=== PATIENT | female | born 1995 | race Caucasian/White ===

== ENCOUNTER 2017-04-09 21:52 | Emergency (ER) | payer BC, OTHER ==
[~2017-04-09] VITALS: Ht 172.7 cm; Wt 124.0 kg
[2017-04-09 21:54] VITALS: Ht 172.7 cm; Wt 124.0 kg
[2017-04-09] MEDS ORDERED: KETOROLAC 30 MG INJ IV STA (22:06)
[2017-04-09] MEDS ORDERED: SOD CHLORIDE 0.9% 1,000 ML IV STA (22:06)
[2017-04-09 22:52] LABS: ADD UMIC YES; URINE BILIRUBIN (Dip) NEGATIVE (NEGATIVE); URINE BLOOD (Dip) 3+ (NEGATIVE); URINE COLOR LT. YELLOW (YELLOW); URINE GLUCOSE (Dip) NEGATIVE (NEGATIVE); URINE KETONES (Dip) NEGATIVE (NEGATIVE); URINE LEUKOCYTE ESTERASE (Dip) NEGATIVE (NEGATIVE); URINE NITRITE (Dip) NEGATIVE (NEGATIVE); URINE TOTAL PROTEIN (Dip) NEGATIVE (NEGATIVE); URINE UROBILINOGEN (Dip) 0.2 E.U./dL (0.1-1.0)
[2017-04-09 23:04] LABS: BACTERIA,URINE OCCASIONAL; MUCUS,URINE MODERATE; SQUAMOUS EPITHELIAL CELL,UR MANY; URINE RBCS 0-2 /HPF (0)
[2017-04-09 23:13] LABS: ADD SCAN DIFF NO
[2017-04-09 23:17] LABS: BASOPHILS % 0.3 % (0.0-2.0); EOSINOPHILS # 0.2 10^3/ul (0.0-0.5); EOSINOPHILS % 1.9 % (0.0-7.0); HEMATOCRIT 34.3 % (37.0-47.0); LYMPHOCYTES % 37.8 % (15.0-51.0); MEAN CORPUSCULAR HEMOGLOBIN 30.9 pg (29.0-33.0); MEAN CORPUSCULAR VOLUME 88.4 fl (82.0-101.0); MEAN PLATELET VOLUME 11.5 fl (7.4-10.4); MONOCYTE # 0.6 10^3/ul (0.3-0.9); MONOCYTES % 5.6 % (0.0-11.0); NEUTROPHIL # 5.7 10^3/ul (1.6-7.5); PLATELET COUNT 295 10^3/UL (140-415); RED BLOOD COUNT 3.88 10^6/ul (4.20-5.40); RED CELL DISTRIBUTION WIDTH 12.8 % (11.5-14.5); WHITE BLOOD COUNT 10.5 10^3/ul (4.8-10.8)
--- NOTE | 2017-04-09 23:39 | ERD ---
ER Documentation Chief Complaint Date/Time DATE: 04/09/17 TIME: 23:32 Chief Complaint vaginal bleeding x 3 weeks, denies , pelvic pain HPI This 21-year-old female reports vaginal bleeding for the last 2-3 weeks. Patient reports clots, pelvic cramping, weakness fatigue and dizziness. Patient reports she has history of abnormal menstruation and states she has been seen by her primary care physician was prescribed oral control pills which she has not started yet. Patient reports that she was going to start pills after this menstruation but this menstruation has not stopped. Patient denies possibility of , she is sexually active, does not use condoms, but reports she took a test at the beginning of the month. Patient reports nausea intermittently, denies vomiting, breast tenderness, or weight gain. ROS All systems reviewed and are negative except as per history of present illness. Medications Home Meds No Active Prescriptions or Reported Meds Allergies Allergies: Coded Allergies: No Known Allergy (Unverified , 04/20/14) PMhx/Soc Hx Alcohol Use: No Hx Substance Use: No Hx Tobacco Use: No Physical Exam Vitals Vital Signs Date Time Temp Pulse Resp B/P Pulse Ox O2 Delivery O2 Flow Rate FiO2 04/09/17 21:54 97.8 96 20 131/70 98 Vitals stable, triage notes Physical Exam Const: Vitals stable, triage notes reviewed Head: Atraumatic Eyes: Normal Conjunctiva, PERRLA, EOMI ENT: Normal External Ears, Nose and Mouth, mucous membranes Neck: Resp: Chest rise and fall symmetrically, no respiratory distress Cardio: Abd: Abdomen obese, soft, right upper quadrant tenderness, generalized lower quadrant tenderness, no CVA tenderness Skin: Back: No midline or flank tenderness Ext: Neur: Awake and alert Psych: Normal Mood and Affect Result Diagram: 04/09/17 4172 Results 24 hrs Laboratory Tests Test 04/09/17 22:30 04/09/17 22:52 Urine Color LT. YELLOW Urine Clarity CLEAR Urine pH 5.5 Urine Specific [place] >=1.030 Urine Ketones NEGATIVE Urine Nitrite NEGATIVE Urine Bilirubin NEGATIVE Urine Urobilinogen 0.2 E.U./dL Urine Leukocyte Esterase NEGATIVE Urine Microscopic RBC 0-2/HPF Urine Microscopic WBC 0-2/HPF Urine Squamous Epithelial Cells MANY Urine Bacteria OCCASIONAL Urine Mucus MODERATE Urine Hemoglobin 3+ Urine Glucose NEGATIVE% Urine Total Protein NEGATIVE White Blood Count 10.510^3/ul Red Blood Count 3.8810^6/ul Hemoglobin 12.0g/dl Hematocrit 34.3% Mean Corpuscular Volume 88.4fl Mean Corpuscular Hemoglobin 30.9pg Mean Corpuscular Hemoglobin Concent 35.0g/dl Red Cell Distribution Width 12.8% Platelet Count 15743^3/UL Mean Platelet Volume 11.5fl Neutrophils % 54.0% Lymphocytes % 37.8% Monocytes % 5.6% Eosinophils % 1.9% Basophils % 0.3% Nucleated Red Blood Cells % 0.0/100WBC Neutrophils # 5.710^3/ul Lymphocytes # 4.010^3/ul Monocytes # 0.610^3/ul Eosinophils # 0.210^3/ul Basophils # 0.010^3/ul Nucleated Red Blood Cells # 0.010^3/ul Current Medications Medications (Trade) Dose Ordered Sig/Aileen Route PRN Reason Start Time Stop Time Status Last Admin Dose Admin Sodium Chloride (NS) 1,000 ml @ 1,000 mls/hr Q1H STAT IV 04/09/17 22:06 04/09/17 23:05 DC 04/09/17 22:56 Ketorolac Tromethamine (Toradol) 15 mg ONCE STAT IV 04/09/17 22:06 04/09/17 22:13 DC 04/09/17 22:57 Interpretation text CBC shows no evidence of acute hemorrhage or infection. U hCG negative for evidence of Urinalysis negative for evidence of infection, no nitrates or leukocytosis. Procedures/MDM PROCEDURE: US Non-OB Pelvis. CLINICAL INDICATION: Pelvic pain. TECHNIQUE: Multiple sonographic images of the pelvis were obtained utilizing a transabdominal and endovaginal technique. The images were reviewed on a PACS workstation. COMPARISON: None. FINDINGS: The uterus is visualized and measures 5.6 x 2.7 x 3.8 cm. The endometrial echo complex is normal and measures 7 mm. The right ovary measures 3.2 x 3.4 x 2.6 cm. The left ovary measures 2.7 x 2.8 x 2.3 cm. Blood flow is demonstrated to both ovaries. No adnexal masses are noted. There is a small volume of free fluid. IMPRESSION: 1. Normal appearance of uterus and ovaries. 2. Small volume of free pelvic fluid, probably physiologic. Electronically viewed and signed by .Jared Montes MD, MD on 04/10/2017 00:28 This 21-year-old female presents to emergency department today for 3 week history of menstruation with clots, fatigue, and dizziness. Patient has history of irregular menstruation and has been prescribed oral control pills to regulate periods. Patient has not started medication yet states she was going to start after this period ended. Patient sexually active, uses condoms, unlikely, anemia, dysfunctional uterine bleeding, polycystic ovarian syndrome working diagnosis. Patient test is negative, hemoglobin and hematocrit stable without evidence of anemia or hemorrhage. Pelvic ultrasound findings; the uterus is visualized, endometrial echo complex is normal. The right ovary and left ovary present with normal blood flow demonstrated to both. No adnexal masses there is a small volume of free pelvic fluid noted documented as physiologic. Urinalysis shows no evidence of microscopic hematuria or nitrates, no evidence of infection. Patient receives a liter of normal saline, IV Toradol, and reassessed after all treatments and test results finalized. Patient reports improvement of symptoms. Plan patient will be given Naprosyn for pelvic cramping. Instructed to follow-up with primary herbologist for dysfunctional uterine bleeding. I feel the patient is stable for discharge at this time. I have discussed results, examination findings, the treatment plan with the patient and family present prior to discharge. Indications for emergent reevaluation, side effects of medication were also discussed. All questions were answered. Patient verbalizes understanding and agrees with plan of care. Departure Diagnosis: Primary Impression: DUB (dysfunctional uterine bleeding) Condition: Good Patient Instructions: Dysfunctional Uterine Bleeding Referrals: [facility] REFERRAL LIST Additional Instructions: Thank you for for coming to [facility] for your care today. Please ask your nurse or provider if you have questions about your care today and do not leave until all your questions have been answered. Please use any medications given as directed and follow-up with your doctor (or the doctor you were referred to) in the next 2-3 days. If you do not have a primary care doctor you may follow up at the [facility] - [place], [place] (listed below). You may also use motrin and tylenol as needed for fever and/or pain unless instructed otherwise by your provider or nurse. Indications for more urgent follow-up have been discussed, but you may return to the Emergency Department at ANY time for any worrisome or worsening symptoms. If you have abdominal pain, please know that no test or exam you received is perfect and you should follow up within 8 hours for continued pain. If you had any imaging studies today, such as an X-Ray or CT Scan, these studies will be reviewed later by a radiologist. You will be called if there are important findings that were not identified today, so make sure the contact information you provided at registration is correct. If you received any narcotic pain control medicine today, such as Vicodin, Morphine or Dilaudid, your coordination and judgment may be affected for a number of hours. Please do not drive or operate heavy machinery, and you may want someone to assist you at home. If you were given a prescription for narcotic medication, be aware that it is very addictive- use sparingly and only if necessary. AP APARICIO Apr 09, 2017 23:39
--- NOTE | 2017-04-10 00:28 | RADRPT ---
PROCEDURE: US Non-OB Pelvis. CLINICAL INDICATION: Pelvic pain. TECHNIQUE: Multiple sonographic images of the pelvis were obtained utilizing a transabdominal and endovaginal technique. The images were reviewed on a PACS workstation. COMPARISON: None. FINDINGS: The uterus is visualized and measures 5.6 x 2.7 x 3.8 cm. The endometrial echo complex is normal and measures 7 mm. The right ovary measures 3.2 x 3.4 x 2.6 cm. The left ovary measures 2.7 x 2.8 x 2.3 cm. Blood flow is demonstrated to both ovaries. No adnexal masses are noted. There is a small volume of free fluid. IMPRESSION: 1. Normal appearance of uterus and ovaries. 2. Small volume of free pelvic fluid, probably physiologic. RPTAT: HTAR .Jared Montes MD, Date Time Electronically viewed and signed by .Jared Montes MD, on 04/10/2017 00:28 .R/
[2017-04-10] MEDS ORDERED: NAPR-260 PO (00:48)
[2017-04-10 01:05] VITALS: BP 117/73; PULSE 62; RESP 16; TEMP 97.9
== END 2017-04-10 01:07 | disposition home or self-care (01) ==
LOC: FTE 21:52
DX: N93.8 Other specified abnormal uterine and vaginal bleeding (principal); R10.2 Pelvic and perineal pain
CPT/HCPCS: 76830; 76856; 81001; 85025; J1885; J7030; 36415; 96374